=== PATIENT | female | born 1950 | race Caucasian/White ===

== ENCOUNTER 2024-02-03 11:53 | Emergency (ER) | payer OTHER ==
[~2024-02-03] VITALS: Ht 165.1 cm; Wt 40.4 kg
[~2024-02-03 11:53] MED LIST: ASPI-1265 PO; MULT-620 PO; VENL37.589 PO; VITA-268 PO
[2024-02-03 13:09] LABS: BASOPHILS # (AUTO) 0.1 X10'3 (0-0.2); EOSINOPHILS # (AUTO) 0.1 X10'3 (0-0.9); EOSINOPHILS % (AUTO) 0.8 % (0-6); HEMATOCRIT 40.6 % (35.0-45.0); HEMOGLOBIN 13.1 g/dl (12.0-16.0); LYMPHOCYTES # (AUTO) 1.4 X10'3 (1.1-4.8); LYMPHOCYTES % (AUTO) 17.5 % (21-51); MEAN CORPUSCULAR HEMOGLOBIN 26.3 PG (27.0-31.0); MEAN CORPUSCULAR HGB CONC 32.4 g/dL (33.0-36.5); MEAN CORPUSCULAR VOLUME 81.2 FL (78-98); MEAN PLATELET VOLUME 7.1 FL (7.4-10.4); MONOCYTES # (AUTO) 0.6 X10'3 (0-0.9); NEUTROPHILS # (AUTO) 5.7 X10'3 (1.8-7.7); NEUTROPHILS % (AUTO) 72.7 % (42-75); PLATELET COUNT 294 X10'3 (140-440); RED CELL DISTRIBUTION WIDTH 16.5 % (11.5-14.5); WHITE BLOOD COUNT 7.9 X10'3 (4.5-11.0)
[2024-02-03 13:33] LABS: ALBUMIN 3.5 G/DL (3.4-5.0); ANION GAP 8 (8-16); BLOOD UREA NITROGEN 13 MG/DL (7-18); BUN/CREATININE RATIO 18.3 (10.0-20.0); CALCIUM 8.9 MG/DL (8.5-10.1); CHLORIDE 99 MMOL/L (99-107); CREATININE 0.71 MG/DL (0.40-0.90); GLUCOSE 144 MG/DL (70-104); POTASSIUM 3.6 MMOL/L (3.5-5.1); SODIUM 135 MMOL/L (135-145); THYROID STIMULATING HORMONE 1.03 ulU/ml (0.34-4.50); TOTAL CARBON DIOXIDE 28.1 MMOL/L (24-32); eCRCL 45 ML/MIN; eGFR 81 ML/MIN
[2024-02-03 13:39] LABS: ETHANOL < 10 MG/DL (<10)
[2024-02-03] MEDS: nicotine 14mg patch - 24hr TD ONE (14:39)
[2024-02-03] MEDS ORDERED: PROP10TA10 PO (15:08)
[2024-02-03] MEDS ORDERED: OMEP20CA16 PO (15:08)
[2024-02-03] MEDS ORDERED: ATOR10TA87 PO (15:08)
[2024-02-03] MEDS ORDERED: HYDR25TA5 PO (15:34)
[2024-02-03] MEDS ORDERED: METF-517 PO (15:34)
[2024-02-03] MEDS ORDERED: OMEP40CA21 PO (15:34)
[2024-02-03] MEDS ORDERED: METF-881 PO (15:34)
[2024-02-03] MEDS: ziprasidone IM 20mg inj **IM only IM ONE (16:52)
[2024-02-03 17:28] LABS: BILIRUBIN,URINE NEGATIVE (Neg); CLARITY,URINE CLOUDY (Clear); COLOR,URINE YELLOW (Yellow); GLUCOSE, URINE NEGATIVE (Neg); KETONES,URINE NEGATIVE (Neg); LEUKOCYTE ESTERASE ,URINE NEGATIVE (Neg); NITRITES, URINE NEGATIVE (Neg); OCCULT BLOOD,URINE NEGATIVE (Neg); PROTEIN,URINE NEGATIVE (Neg); UROBILINOGEN,URINE 0.2 E.U/dL (0.2-1.0)
[2024-02-03 17:30] LABS: UA COLLECTION TYPE STRAIGHT CATH
[2024-02-03 17:35] LABS: BACTERIA,URINE 3+ /HPF (Neg); SQUAMOUS EPITHELIAL CELL,UR FEW /LPF (FEW)
[2024-02-03 17:36] LABS: RBC,URINE 0-2 /HPF (0-2)
[2024-02-03 19:27] LABS: URINE AMPHETAMINE SCREEN NEGATIVE (Neg); URINE BARBITUATE SCREEN NEGATIVE (Neg); URINE BENZODIAZEPINES SCREEN NEGATIVE (Neg); URINE CANNABINOID SCREEN NEGATIVE (Neg); URINE COCAINE SCREEN NEGATIVE (Neg); URINE METHADONE SCREEN NEGATIVE (Neg); URINE PHENCYCLIDINE SCREEN NEGATIVE (Neg)
[2024-02-04 06:09] VITALS: BP 139/54; PULSE 57; RESP 12; TEMP 97.9; O2SAT 96
[2024-02-04] MEDS: aspirin 81mg tab.chew PO SCH (08:00)
[2024-02-04] MEDS: VITAMIN B COMPLEX PO SCH (08:00)
[2024-02-04] MEDS: HYDROchlorothiazide 25mg tablet PO SCH (09:55)
[2024-02-04] MEDS: atorvastatin 10mg tablet PO SCH (09:55)
[2024-02-04] MEDS: multivitamins, therapeutics tablet PO SCH (09:55)
[2024-02-04] MEDS: metFORMIN 500mg tablet PO SCH (09:56)
[2024-02-04] MEDS: pantoprazole 40mg Tablet.DR PO SCH (10:15)
[2024-02-04] MEDS: propranolol 10mg tablet PO SCH (10:15)
[2024-02-04] MEDS: venlafaxine XR 37.5mg cap (Q24H) PO SCH (10:16)
[2024-02-04] MEDS: diphenhydrAMINE 50 mg/ml inj IM ONE (13:30)
[2024-02-04] MEDS: OLANZapine **IM** 10 mg inj. IM ONE (13:31)
[2024-02-04] MEDS: nicotine 14mg patch - 24hr TD ONE (13:31)
== END 2024-02-04 18:04 | disposition home or self-care (01) ==
LOC: ER 11:54
DX: R45.851 Suicidal ideations (principal); F03.90 Unspecified dementia, unspecified severity, without behavioral disturbance, psychotic disturbance, mood disturbance, and anxiety; Z20.822 Contact with and (suspected) exposure to COVID-19; Z88.8 Allergy status to other drugs, medicaments and biological substances; Z98.51 Tubal ligation status
CPT/HCPCS: 36415; 80048; 80305; 80320; 81001; 82948; 84443; 85025; 87811; 96372; 99284; J1200; J3486; J3490; A4353